=== PATIENT | female | born 1965 | race African-American/Black ===

== ENCOUNTER → 2017-05-13 | Outpatient (CLI) | payer BC, OTHER ==
[~2017-05-13] MED LIST: ACET500T33 PO; AMLO5TAB2 PO; ASPI-482 PO; BIOT1TAB2 PO; CHOL400C PO; CYCL10TA2 PO; CYCL1DRO EACHEYE; FISH OIL OMEGA1 EACH PO; GABA-585 PO; LINA145C PO; NAPR500T3 PO; NORG1TAB PO; OMEP40CA5 PO; VALS1TAB31 PO; [UNRECOGNIZED DRUG - OTHER]
--- NOTE | 2017-05-14 00:59 | PAIN ---
DATE OF SERVICE: 05/13/2017 PROGRESS NOTE FOR PAIN CLINIC DIAGNOSES: 1. Cervical radiculopathy with cervical degenerative disk disease. 2. Lumbar radiculopathy with post-lumbar laminectomy syndrome. HISTORY OF PRESENT ILLNESS: The patient is a 51-year-old female who returns for followup status post both cervical epidural steroid injections in the past and caudal epidural steroid injections. The patient had a cervical injection in 03/2016 and caudal approach lumbar injection in 07/2016. The patient did very well with about 90% improvement for greater than 6 months with each one of the injections. The patient reports that the low back has lasted even longer. She is starting to have some pain now increasing in the base of the neck radiating to bilateral upper extremities, worse on the right than the left as well as the low back radiating to the bilateral lower extremities, worse again on the right than the left. The patient reports it has been waking her up from sleep at night, has been quite bothersome, but she responded very well to the injections in the past and would like to pursue these once again. The patient reports the pain in the neck and shoulders is worse with aching, sharp, burning, cramping, stabbing, radiating and occasionally unbearable pain. Low back is burning, cramping, aching and radiating as well. The patient reports the pain is an 8 on a scale of 10 at its worst, averaging about a 6 and at least is about a 4 today. The patient reports no motor or sensory deficits, no new bowel or bladder incontinence or other complaints. PHYSICAL EXAMINATION: VITAL SIGNS: The patient's blood pressure is 119/86, pulse 66, respirations 18, temperature 98.4 degrees Fahrenheit. Height is 5 feet 7 inches, weight 182 pounds. GENERAL: The patient is awake, alert, oriented, appropriate, very pleasant demeanor. HEENT: Head shows normocephalic, atraumatic. Extraocular movements are intact, symmetrical. Oral cavity, mucous membranes are moist and pink. Dentition is intact. NECK: Shows anterior throat supple without palpable lymphadenopathy noted. Swallow reflex is symmetrical. Posterior cervical musculature shows some moderate tenderness with palpation, but is symmetrical on inspection. No specific trigger points or radiation, some moderate tenderness though diffusely throughout the middle and lower distribution of paraspinous muscles in the cervical distribution as well as the superior medial trapezius, somewhat more on the right than the left with tenderness, but without specific radiation or trigger points. The patient shows good rotational motion of the cervical spine, slightly guarded with extension, but good right and left lateral rotation for past 45 degrees closer to 90 degrees with full forward flexion as well without exacerbation of pain. CHEST: Shows normal with inspection. Breath sounds are clear to auscultation bilaterally. HEART: Shows S1 and S2 clear. No murmurs auscultated. ABDOMEN: Soft, nontender, nondistended. No palpable organomegaly. There is no rebound or guarding demonstrated. BACK: Shows spine grossly in the midline. Well-healed surgical scars noted in the lumbar distribution, but maintained cervical lordotic curvatures appreciated. The patient's paraspinous musculature is still symmetrical. On inspection with palpation shows some moderate tenderness diffusely in the upper, middle and lower distribution of the paraspinous muscles, slightly more ____ on the right than the left, but again symmetrical. No tenderness over the spinous processes, sacrum or sacroiliac regions. The patient shows good rotational motion of lumbar spine both laterally as well as extension and flexion without exacerbation of pain. EXTREMITIES: Upper extremity deep tendon reflexes at 2+ in the biceps and triceps tendons. 1+ patellar and tendo-calcaneus tendons. Motor exam is strong with commercial designer strength rated at 5/5 on the left and 4/5 on the right. Bicep and tricep flexion 4/5 on right, 5/5 left as well. Peripheral pulses are 2+ on radial distribution. No peripheral edema is noted. Lower extremities showed deep tendon reflexes at 2+ in the patellar, 1+ tendo-calcaneus tendons are symmetrical. Motor exam is strong with 5/5 dorsiflexion and extension as well as quadriceps and hamstring flexion. Peripheral pulses are 1+ posterior tibial. No peripheral edema is noted in the bilateral lower extremities. Options were discussed with the patient. The patient's old chart was reviewed as her current medication regimen updated. Current review of systems updated today as well. We will preauthorize the patient for both cervical epidural steroid injection and caudal approach lumbar epidural steroid injection as she has done very well with each of these in the past with significant radicular qualities bilaterally in the C6-C7 dermatomes in the cervical distribution as well as in the L5-S1 dermatomes in the lumbar distribution. The patient will wait for preauthorization. In the meantime, we will try Neurontin as she has done well with this in the past to some extent and Medrol Dosepak. The patient was given instruction as well as side effects to be aware of each of these medications and was encouraged to maintain her exercises. She is doing daily stretches and will continue these as well as walking daily to the best of her ability with the current pain and follow up for cervical epidural steroid injection first on her next appointment. AGUS MCARTHUR MD DR: AMANDEEP/dayo JOB#: [id number] / [id number]
== END | disposition home or self-care (01) ==
LOC: PNCL 07:38
PROVIDERS: ATTEND Anesthesiology
DX: M54.12 Radiculopathy, cervical region (principal); M54.16 Radiculopathy, lumbar region
CPT/HCPCS: 99212

== ENCOUNTER → 2017-05-23 | Outpatient (CLI) | payer BC, OTHER ==
[~2017-05-23] MED LIST changes: +IOHEXOL 180 MG/ML 10 ML VIAL. ONE; -NAPR500T3 PO; +NAPR500T4 PO; +methylPREDNISolone ACETATE 40 MG/ML VIAL. ONE; +methylPREDNISolone ACETATE 80 MG/ML VIAL. ONE
--- NOTE | 2017-05-23 08:52 | PAIN ---
DATE OF SERVICE: 05/23/2017 DIAGNOSES: 1. Cervical radiculopathy with cervical degenerative disk disease. 2. Lumbar radiculopathy with post-lumbar laminectomy syndrome. HISTORY OF PRESENT ILLNESS: The patient is a 51-year-old female who returns for followup status post pre-authorization after initial visit for cervical epidural steroid injection. The patient reports still significant pain in the neck and bilateral upper extremities, right greater than left, radiating as it was previously. The patient reports no significant change after the Medrol Dosepak, only very minimal for first few days she was taking. The patient reports the pain is still an 8 on a scale of 10 at its worst, 6 on average and 2 at least, patient reports 2 today. The patient reports sharp, dull, shooting, tingling, burning, stabbing, can be severe nonbearable at times. The patient reports no new motor or sensory deficits, still pain in the low back, bilateral lower extremities, again worse on the left side than the right at this time. The patient reports that she is sleeping well at night, feels much better with lying down or sitting, much worse with up and around, using her upper extremities, even raising her arms overhead such as getting dressed is exacerbating the pain in the neck and shoulders, especially in the right arm. PHYSICAL EXAMINATION: VITAL SIGNS: Today, the patient's blood pressure is 117/78, pulse 56, respirations are 18, temperature is 98.2 degrees Fahrenheit. Height is 5 feet 7 inches, weighs 185 pounds. GENERAL: The patient is awake, alert, oriented, appropriate, very pleasant demeanor. HEENT: Head shows normocephalic, atraumatic. Extraocular movements intact, symmetrical. Oral cavity, mucous membranes are moist and pink. Dentition is intact. NECK: Shows anterior throat supple without palpable lymphadenopathy noted. Swallow reflex is symmetrical. CHEST: Shows normal on inspection. Breath sounds are clear to auscultation bilaterally. HEART: Shows S1 and S2 clear. ABDOMEN: Soft, nontender, nondistended. No palpable organomegaly. No rebound or guarding demonstrated. BACK: Shows spine grossly in midline. Cervical paraspinous muscle shows some moderate tenderness to palpation, but only diffusely with symmetrical paraspinous musculature. The patient shows no difficulty with rotational motion, some slight guarding with extension, but not with forward flexion. Right and left lateral rotation is slightly guarded as well, but again with full range of motion. Deep tendon reflexes are 2+ in the biceps and triceps tendons. Motor exam is approximately 4 on a scale of 5 on the right with cyber systems operations specialist strength and 5/5 on the left. Peripheral pulses are 2+ radial distribution bilaterally. Chest shows normal on inspection. Breath sounds clear to auscultation bilaterally. HEART: Shows S1 and S2 clear. ABDOMEN: Soft, nontender, nondistended. No palpable organomegaly. No rebound or guarding demonstrated. Options were discussed with the patient. The patient's old chart was reviewed as her current medication regimen updated. Current review of systems updated today as well. We will proceed with a cervical epidural steroid injection today with fluoroscopic guidance. Risks were again discussed including, but not limited to bleeding, infection, possibility of epidural hematoma, subsequent neurologic compromise, dural puncture, headaches, spinal cord and/or nerve damage, side effects of steroid medication and poor results regarding pain control. The patient understands and wishes to proceed. The patient will return to clinic in approximately 2 weeks for followup. She was counseled to return appointment, activity level and side effects to be aware of. DIAGNOSES: 1. Cervical radiculopathy with cervical degenerative disk disease. 2. Cervical epidural steroid injection in translaminar approach at the C6-C7 level C-arm fluoroscopic guidance, a sterile prep and drape, using local anesthetic. MEDICATION INJECTED: 120 mg Depo-Medrol, plus 5 mL of preservative-free normal saline and 2 mL of Isovue for contrast. CONDITION ON DISCHARGE: Stable. The patient tolerated procedure well, had no complications. AGUS MCARTHUR MD DR: AMANDEEP/dayo JOB#: [id number] / [id number]
== END | disposition home or self-care (01) ==
LOC: PNCL 07:35
PROVIDERS: ATTEND Anesthesiology
DX: M50.123 Cervical disc disorder at C6-C7 level with radiculopathy (principal); M54.16 Radiculopathy, lumbar region; M96.1 Postlaminectomy syndrome, not elsewhere classified
CPT/HCPCS: 62321; J1030; J1040

== ENCOUNTER → 2017-06-06 | Outpatient (CLI) | payer BC, OTHER ==
[~2017-06-06] MED LIST changes: -IOHEXOL 180 MG/ML 10 ML VIAL. ONE; -methylPREDNISolone ACETATE 40 MG/ML VIAL. ONE; -methylPREDNISolone ACETATE 80 MG/ML VIAL. ONE
--- NOTE | 2017-06-06 12:06 | PAIN ---
DATE OF SERVICE: 06/06/2017 DATE OF SERVICE: 06/06/2017 DIAGNOSES: 1. Lumbar radiculopathy with post-lumbar laminectomy syndrome. 2. Cervical radiculopathy with cervical degenerative disk disease. HISTORY OF PRESENT ILLNESS: The patient is a 51-year-old female who returns for followup status post cervical epidural steroid injection x 1 with very good results, approximately 80% improvement, still improved in the neck and shoulders. Her chief complaint today is low back pain with bilateral lower extremity pain, slightly worse on the left than the right, currently, but present bilaterally with radiating pain from the posterior gluteus, posterior thighs, posterior calf into the legs and ankles some on the lateral thigh as well, but mostly posteriorly. The patient reports it is a 4 on a scale of 10 at its worst, 2 on a scale 10 on average and is a 2 today. The patient reports it as a sharp and dull alternating with tingling, pain, radiating pain in the lower extremities as noted. The patient reports no loss of motor function with significant fatigability to lower extremities. The patient did very well on 07/2016 with a caudal approach epidural injection with near 100% improvement at that time. The pain has been returning for about 3 months, but has been only gradually increasing. At her neck is feeling better, low back and lower extremities it is much more noticeable. The patient reports no new motor or sensory deficits, no new bowel or bladder incontinence or other complaints. Has radiation of pain in the L5-S1 dermatomal distribution again bilaterally, slightly worse on the left than the right. The patient reports it is better with being off feet, lying down, sitting down relieves the pain to a fair extent. It does not awaken her from sleep, generally no loss of motor function. PHYSICAL EXAMINATION: VITAL SIGNS: The patient's blood pressure 129/75, pulse 71, respirations 18, temperature is 98.9 degrees Fahrenheit. Height is 5 feet 7 inches, weight is 184 pounds. GENERAL: The patient is awake, alert, oriented, appropriate, very pleasant demeanor. HEENT: Head shows normocephalic, atraumatic. Extraocular movements are intact and symmetrical. Oral cavity, mucous membranes are moist and pink. Dentition is intact. NECK: Shows anterior throat supple. Swallow reflex is symmetrical. Neck shows good rotation of motion both laterally as well as extension and flexion without significant difficulty. CHEST: Shows normal with inspection. Breath sounds clear to auscultation bilaterally. HEART: Shows S1 and S2 clear. ABDOMEN: Soft, nontender, nondistended. No palpable organomegaly. There is no rebound or guarding demonstrated. BACK: Shows midline spine with normal appearing thoracic kyphosis, cervical lordotic curvature and lumbar lordotic curvature. No previous bruises, lesions, rashes are noted. There is a well-healed surgical scar over the lumbar distribution. Lumbar paraspinous musculature shows symmetrical on inspection, with palpation shows some moderate tenderness bilaterally with palpation, but only diffusely without radiation, without atrophy, hypertrophy or trigger points. No tenderness over the sacrum or sacroiliac regions. Lower extremities showed deep tendon reflexes at 1+ in the patellar and tendo calcaneus tendons are equal. Motor exam is strong with dorsiflexion and extension, rated at 5/5 as is quadriceps and hamstring flexion. Peripheral pulses are 1+ posterior tibial and dorsalis pedis pulses. No peripheral edema is noted. No clubbing, no cyanosis. The patient does have positive straight leg raise on the left and right at about 40-45 degrees bilaterally with decreased pain with knee flexion, but not completely relieved. Slightly more tender on the left side than the right. Gaenslen's and Sreekanth's maneuvers are negative bilaterally. Options were discussed with the patient. The patient's old chart was reviewed as her current medication regimen updated. Current review of systems updated today as well. We will proceed with a preauthorization for a caudal approach epidural steroid injection with significant radicular pain bilaterally, again worse left than the right with a history of very good response to these. Again, the patient has radiating pain in L5-S1 dermatomal distribution bilaterally. PLAN: The patient will continue stretching and strengthening exercises as she is doing and continue walking as tolerated and we will obtain preauthorization and plan on caudal epidural injection at that time. AGUS MCARTHUR MD DR: AMANDEEP/dayo JOB#: [id number] / [id number]
== END | disposition home or self-care (01) ==
LOC: PNCL 08:19
PROVIDERS: ATTEND Anesthesiology
DX: M54.16 Radiculopathy, lumbar region (principal); M54.12 Radiculopathy, cervical region; M50.30 Other cervical disc degeneration, unspecified cervical region
CPT/HCPCS: 99212

== ENCOUNTER → 2017-07-19 | Outpatient (CLI) | payer BC, OTHER ==
[~2017-07-19] MED LIST changes: +IOHEXOL 180 MG/ML 10 ML VIAL. ONE; +LIDOCAINE/PRILOCAINE TOPICAL CREAM 5GM TUBE. TP ONE; +methylPREDNISolone ACETATE 40 MG/ML VIAL. ONE; +methylPREDNISolone ACETATE 80 MG/ML VIAL. ONE
--- NOTE | 2017-07-19 09:14 | PAIN ---
DATE OF SERVICE: 07/19/2017 DIAGNOSES: 1. Lumbar radiculopathy with post-lumbar laminectomy syndrome. 2. Cervical radiculopathy with cervical degenerative disk disease. HISTORY OF PRESENT ILLNESS: The patient is a 52-year-old female who returns for followup status post evaluation and preauthorization for a caudal epidural steroid injection. The patient returns today wishing to proceed, complaining of pain still in the low back, bilateral lower extremities, worse on the right than the left with the pain radiating from the posterior gluteus, posterior thighs into the posterior calf, lateral medial calf on the right side and the big toe on the right side as well, some anterior thigh pain as well as posterior thigh pain on the left, but not as severe as on the right. The patient reports pain is a 7 on a scale of 10 at its worst, a 4 on average, a 1 at its least, is a 4 today. The patient reports aching, sharp, shooting, tingling, stabbing and radiating pain, becoming more constant. The patient reports no motor or sensory deficits, no new bowel or bladder incontinence. The patient reports it is much worse with standing, walking, changing positions. Sitting is better, with lying down it is much better. It does not awaken her from sleep. She sleeps about 8 hours a night on average. The patient reports no new motor or sensory deficits, no new changes. PHYSICAL EXAMINATION: VITAL SIGNS: Today, the patient's blood pressure is 132/81, pulse is 61, respirations 18, temperature is 98.8 degrees Fahrenheit, height is 5 feet 7 inches, weight is 165 pounds. GENERAL: The patient is awake, alert, oriented, appropriate, very pleasant demeanor. HEENT: Head shows normocephalic, atraumatic. Extraocular movements are intact, symmetrical. Oral cavity: Mucous membranes moist and pink. Dentition is intact. NECK: Shows anterior throat supple without palpable lymphadenopathy noted. Swallow reflex symmetrical. CHEST: Shows normal with inspection. Breath sounds clear to auscultation bilaterally. HEART: Shows S1, S2 clear. No murmurs auscultated. ABDOMEN: Soft, nontender, nondistended. No palpable organomegaly noted. No rebound or guarding demonstrated. BACK: Shows spine grossly in the midline. Some slight flattening of lumbar lordotic curvature with previously well-healed surgical scar in the lumbar distribution. Lumbar paraspinous muscle shows symmetrical on inspection, with palpation shows some moderate tenderness bilaterally, but only diffusely in the lumbar paraspinous muscles without radiation. The patient has good rotational motion both laterally as well as extension and flexion without significant difficulty. EXTREMITIES: Lower extremities show deep tendon reflexes 2+ in the patellar, 1+ tendo-calcaneus tendons are equal. Motor exam is strong with 5/5 dorsiflexion and extension, quadriceps and hamstring flexion. Peripheral pulses are 2+ posterior tibial. No peripheral edema is noted. Options were discussed with the patient. The patient's old chart was reviewed as was current medication regimen and updated. Current review of systems updated today as well. We will proceed with a caudal approach epidural steroid injection today with fluoroscopic guidance. Risks were again discussed including, but not limited to bleeding, infection, possibility of epidural hematoma, subsequent neurologic compromise, dural puncture headaches, spinal cord and/or nerve damage, side effects of steroid medication and poor results regarding pain control. The patient understands and wished to proceed. The patient will return to the clinic in approximately 2 weeks for followup, was counseled on return appointment, activity level and side effects to be aware of. DIAGNOSIS: Lumbar radiculopathy with post-lumbar laminectomy syndrome. PROCEDURE: Lumbar epidural steroid injection, caudal approach using C-arm fluoroscopic guidance under sterile prep and drape using local anesthetic. MEDICATION INJECTED: A total of 120 mg Depo-Medrol plus 10 mL of preservative-free normal saline and 2 mL Isovue contrast. CONDITION AT DISCHARGE: Stable. The patient tolerated the procedure well, had no complications. AGUS MCARTHUR MD DR: AMANDEEP/dayo JOB#: [id number] / [id number]
== END | disposition home or self-care (01) ==
LOC: PNCL 08:06
PROVIDERS: ATTEND Anesthesiology
DX: M96.1 Postlaminectomy syndrome, not elsewhere classified (principal); M54.16 Radiculopathy, lumbar region; M50.120 Mid-cervical disc disorder, unspecified level
CPT/HCPCS: 62323; J1030; J1040

== ENCOUNTER → 2017-11-25 | Outpatient (CLI) | payer BC, OTHER | END | disposition home or self-care (01) | LOC: PNCL 09:09 | DX: M50.10 Cervical disc disorder with radiculopathy, unspecified cervical region (principal) | CPT/HCPCS: 99212 ==

== ENCOUNTER → 2018-01-03 | Outpatient (CLI) | payer BC, OTHER ==
[~2018-01-03] MED LIST changes: -ACET500T33 PO; -AMLO5TAB2 PO; -ASPI-482 PO; -BIOT1TAB2 PO; -CHOL400C PO; -CYCL10TA2 PO; -CYCL1DRO EACHEYE; -FISH OIL OMEGA1 EACH PO; -GABA-585 PO; +IOHEXOL 180 MG/ML 10 ML VIAL.; -IOHEXOL 180 MG/ML 10 ML VIAL. ONE; +LIDOCAINE 1% PF 2 ML VIAL.; -LIDOCAINE/PRILOCAINE TOPICAL CREAM 5GM TUBE. TP ONE; -LINA145C PO; -NAPR500T4 PO; -NORG1TAB PO; -OMEP40CA5 PO; -VALS1TAB31 PO; -[UNRECOGNIZED DRUG - OTHER]; +methylPREDNISolone ACETATE 40 MG/ML VIAL.; -methylPREDNISolone ACETATE 40 MG/ML VIAL. ONE; +methylPREDNISolone ACETATE 80 MG/ML VIAL.; -methylPREDNISolone ACETATE 80 MG/ML VIAL. ONE
== END | disposition home or self-care (01) ==
LOC: PNCL 07:58
DX: M50.123 Cervical disc disorder at C6-C7 level with radiculopathy (principal); M96.1 Postlaminectomy syndrome, not elsewhere classified
CPT/HCPCS: 62321; J1030; J1040; Q9965

== ENCOUNTER → 2018-02-17 | Outpatient (CLI) | payer BC, OTHER | END | disposition home or self-care (01) | LOC: PNCL 08:56 | DX: M50.10 Cervical disc disorder with radiculopathy, unspecified cervical region (principal) | CPT/HCPCS: 99212 ==

== ENCOUNTER → 2018-05-11 | Outpatient (CLI) | payer BC, OTHER ==
[~2018-05-11] MED LIST changes: +ACET500T33 PO; +AMLO5TAB7 PO; +ASPI-482 PO; +BIOT1TAB2 PO; +CHOL400C PO; +CYCL10TA2 PO; +CYCL1DRO EACHEYE; +FISH OIL OMEGA1 EACH PO; +GABA-585 PO; -IOHEXOL 180 MG/ML 10 ML VIAL.; +IOHEXOL 180 MG/ML 10 ML VIAL. ONE; -LIDOCAINE 1% PF 2 ML VIAL.; +LIDOCAINE 2% PF 2ML VIAL. ONE; +LINA145C PO; +LOSA1TAB25 PO; +NAPR-514 PO; +NORG1TAB PO; +OMEP40CA5 PO; +VALS1TAB31 PO; +[UNRECOGNIZED DRUG - OTHER]; -methylPREDNISolone ACETATE 40 MG/ML VIAL.; +methylPREDNISolone ACETATE 40 MG/ML VIAL. ONE; -methylPREDNISolone ACETATE 80 MG/ML VIAL.; +methylPREDNISolone ACETATE 80 MG/ML VIAL. ONE
--- NOTE | 2018-05-11 22:26 | PAIN ---
DATE OF SERVICE: 05/11/2018 PROGRESS NOTE FOR PAIN CLINIC DIAGNOSES: 1. Lumbar radiculopathy with post-lumbar laminectomy syndrome. 2. Cervical radiculopathy with cervical degenerative disk disease. HISTORY OF PRESENT ILLNESS: The patient is a 52-year-old who returns for followup status post cervical epidural steroid injection as well as caudal epidural steroid injection, most recently cervical on 01/03/2018 and caudal injection of 07/19/2017. The patient reports she did very well. Initially, she has had some significant pain, increasing in the base of the neck and radiating to the left greater than right upper extremity, but her back has now become worse in the low back radiating to the right lower extremity, posterior gluteus, posterior thigh and calf. The patient reports that is her worst complaint today. Reports it is an 8 on a scale of 10 at its worst, 6 on average, 3 at its least and is an 8 today. The patient reports it is aching, dull, tingling, radiating and becoming more unbearable in the right lower extremity. The patient reports no new motor or sensory deficits. No new bowel or bladder incontinence but still significant pain in the low back and leg. Also, pain in the base of the neck and shoulders on the left side greater than the right into the left arm. The patient reports it does awaken her from sleep at night and she was waiting for preauthorization for a cervical injection, but we would like to have her low back taken care first as it is becoming much more uncomfortable. PHYSICAL EXAMINATION: VITAL SIGNS: The patient's blood pressure 123/73, pulse 57, respirations 16, temperature is 98.2 Fahrenheit, height is 5 feet 7 inches and weight is 189 pounds. GENERAL: The patient is awake, alert, oriented, appropriate and very pleasant demeanor. HEENT: Head shows normocephalic and atraumatic. Extraocular movements are intact and symmetrical. Oral cavity, mucous membranes are moist and pink. Dentition is intact. NECK: Shows anterior throat supple, without palpable lymphadenopathy noted. Swallow reflex is symmetrical. CHEST: Shows normal on inspection. Breath sounds are clear to auscultation bilaterally. HEART: Shows S1 and S2 clear. No murmurs auscultated. ABDOMEN: Soft, nontender and nondistended. No palpable organomegaly is noted. No rebound or guarding demonstrated. BACK: Shows spine grossly in the midline. Normal-appearing thoracic kyphosis and some minor flattening of the lumbar lordotic curvature. Lumbar paraspinous musculature shows symmetrical on inspection. Well-healed surgical scar is again noted. No tenderness with palpation, however, in the upper distribution in the paraspinous muscles but in the middle and lower is fairly significant tenderness, especially in the lower right lumbar paraspinous musculature with palpation. No trigger points. No radiation of pain. EXTREMITIES: The patient's lower extremities show deep tendon reflexes at 1+ in the patellar and tendo-calcaneus tendons. Motor exam is strong with 5/5 dorsiflexion, extension, quadriceps and hamstring flexion. Peripheral pulses are 1+ posterior tibial. No peripheral edema is noted bilaterally. Options were discussed with the patient. The patient's old chart was reviewed as well as her current medication regimen updated. Current review of systems updated today as well. We will proceed with a caudal approach epidural steroid injection today with fluoroscopic guidance. Risks were again discussed including, but not limited to bleeding, infection, possibility of epidural hematoma and subsequent neurologic compromise, dural puncture, headaches, spinal cord and/or nerve damage, side effects of steroid medication and poor results regarding pain control. The patient understands and wished to proceed. The patient will return to the clinic in approximately 2 weeks for followup, was counseled as to return appointment, activity level and side effects to be aware of. DIAGNOSIS: Lumbar radiculopathy with post-lumbar laminectomy syndrome. PROCEDURE: Caudal approach epidural steroid injections using C-arm fluoroscopic guidance under sterile prep and drape using local anesthetic. MEDICATION INJECTED: A total of 120 mg Depo-Medrol plus 10 mL of preservative-free normal saline and 2 mL of Isovue for contrast. CONDITION AT DISCHARGE: Stable. The patient tolerated the procedure well and had no complications. AGUS MCARTHUR MD DR: AMANDEEP/dayo JOB#: [id number] / [id number]
== END | disposition home or self-care (01) ==
LOC: PNCL 14:19
PROVIDERS: ATTEND Anesthesiology
DX: M54.16 Radiculopathy, lumbar region (principal); M96.1 Postlaminectomy syndrome, not elsewhere classified
CPT/HCPCS: 62323; J1030; J1040; J2001; Q9965

== ENCOUNTER → 2018-08-10 | Outpatient (CLI) | payer BC, OTHER ==
[~2018-08-10] MED LIST changes: -LIDOCAINE 2% PF 2ML VIAL. ONE; -LINA145C PO; +LINZESS145 MCG PO
--- NOTE | 2018-08-10 18:42 | PAIN ---
DATE OF SERVICE: 08/10/2018 DIAGNOSES: 1. Lumbar radiculopathy with post-lumbar laminectomy syndrome. 2. Cervical radiculopathy with cervical degenerative disk disease. HISTORY OF PRESENT ILLNESS: The patient is a 53-year-old female who returns for followup status post caudal epidural steroid injection on 05/11/2018. The patient did very well, still about 80% improvement. Her main complaint is neck and left upper extremity pain. The patient reports the pain has increased in the base of the neck, left shoulder, left arm radiating to her hand, some numbness and tingling, some in the right, but mostly on the left. The patient reports it is an aching, sharp, shooting, burning, radiating, severe, graded as 15 on a scale of 10 at its worst, 9 on average and 8 at least, has been an 8 today. The patient reports initially, she was returning to work activities, greater ability to do household activities as well, but now the pain has been returning and has been since here December since she had cervical injections. The patient reports no new motor or sensory deficits. Again, the low back is doing much better. The patient reports it wakes her from sleep if she sleeps on her left side, especially about every 6 hours. The patient reports no new motor or sensory deficits, no new bowel or bladder incontinence or other complaints. PHYSICAL EXAMINATION: VITAL SIGNS: The patient's blood pressure 121/75, pulse 67, respirations 16, temperature is 98.4 degrees Fahrenheit. Weight 192 pounds. GENERAL: The patient is awake, alert, oriented, appropriate, very pleasant demeanor. HEENT: Head shows normocephalic, atraumatic. Extraocular movements intact and symmetrical. Oral cavity: Mucous membranes moist and pink. Dentition is intact. NECK: Shows anterior throat supple without palpable lymphadenopathy noted. Swallow reflex is symmetrical. CHEST: Shows normal on inspection. Breath sounds clear to auscultation bilaterally. HEART: Shows S1, S2 clear. No murmurs auscultated. ABDOMEN: Soft, obese, nontender, nondistended. No palpable organomegaly is noted. No rebound or guarding demonstrated. BACK: Shows spine grossly in the midline. Normal appearing cervical lordotic curvature and thoracic kyphotic curvature as well as lumbar lordotic curvature with well-healed surgical scar noted in the lumbar distribution. Cervical paraspinous musculature shows symmetrical on inspection, on palpation shows some moderate tenderness but only diffusely in the inferior aspect of the cervical paraspinous muscles. The patient has good rotational motion of the cervical spine, both laterally as well as extension and flexion without significant pain reported. EXTREMITIES: Upper extremities show deep tendon reflexes 2+ in the biceps and triceps tendons. Motor exam is strong with medical center director strength rated at 5/5 and equal. Peripheral pulses are 2+ radial. No peripheral edema is noted. Options were discussed with the patient. The patient's old chart was reviewed as her current medication regimen and updated. Current review of systems is updated today as well. We will proceed with a cervical epidural steroid injection today with fluoroscopic guidance. Risks were again discussed including, but not limited to bleeding, infection, possibility of epidural hematoma, subsequent neurologic compromise, dural puncture, headaches, spinal cord and/or nerve damage, side effects of steroid medication and poor results regarding pain control. The patient understands and wished to proceed. The patient to return to clinic in approximately 2 weeks for followup, was counseled as to return appointment, activity level and side effects to be aware of. DIAGNOSES: Cervical radiculopathy with cervical degenerative disk disease. PROCEDURE: Cervical epidural steroid injection, translaminar approach C6-C7 level using C-arm fluoroscopic guidance under sterile prep and drape using local anesthetic. MEDICATION INJECTED: A total of 120 mg Depo-Medrol plus 5 mL of preservative-free normal saline and 2 mL of Isovue for contrast. CONDITION AT DISCHARGE: Stable. The patient tolerated the procedure well, had no complications. AGUS MCARTHUR MD DR: AMANDEEP/dayo JOB#: [id number] / [id number]
== END | disposition home or self-care (01) ==
LOC: PNCL 07:32
PROVIDERS: ATTEND Anesthesiology
DX: M50.123 Cervical disc disorder at C6-C7 level with radiculopathy (principal); M96.1 Postlaminectomy syndrome, not elsewhere classified
CPT/HCPCS: 62321; J1030; J1040; Q9965

== ENCOUNTER → 2018-11-27 | Outpatient (CLI) | payer BC, OTHER ==
[~2018-11-27] MED LIST changes: +AMLO5TAB10 PO; -AMLO5TAB7 PO; -IOHEXOL 180 MG/ML 10 ML VIAL. ONE; +IOHEXOL 300 MG/ML 50 ML VIAL. IT ONE; -methylPREDNISolone ACETATE 40 MG/ML VIAL. ONE; -methylPREDNISolone ACETATE 80 MG/ML VIAL. ONE
[2018-11-27 09:08] VITALS: BP 117/71
[2018-11-27 10:08] VITALS: BP 112/68
--- NOTE | 2018-11-29 08:23 | RAD ---
Cervical myelogram, 11/27/2018: History: Cervical radiculopathy Under local anesthesia, aseptic conditions and fluoroscopic guidance a lumbar puncture was performed at the L2-3 level utilizing a 25-gauge Bhavana spinal needle. Good clear CSF flow was obtained following which 10 cc of Omnipaque 300 was injected into the thecal sac. The spinal needle was removed and hemostasis obtained. The contrast material was maneuvered into the cervical region where appropriate digital imaging was performed. 2.3 minutes of fluoroscopy time was utilized. 10 fluoroscopic spot images were recorded. The patient tolerated the procedure well and was sent to CT in good condition. The following findings are delineated on the myelogram: 1. Preliminary AP and lateral lumbar images demonstrate moderate degenerative disc disease at L4-5 and to a lesser degree at L3-4 with a mild lumbar scoliosis. 2. There is disc space narrowing at C5-6 with anterior and posterior marginal spurring. There is a moderate associated anterior extradural defect with minimal associated narrowing of the thecal sac. 3. There is a minimal right lateral extradural defect at C5-6 at the level of the exiting nerve root sleeve. 4. No other significant intradural or extradural abnormality is detected. CT of the cervical spine-post myelogram, 11/27/2018: Multidetector CT imaging was performed with multiplanar reconstructions produced. The following findings are delineated: 1. No fracture or subluxation is identified. There are mild degenerative changes at scattered facet joints bilaterally. 2. At C2-3 and C3-4 there is no significant posterior disc bulge or protrusion. The central spinal canal and neural foramina are well maintained. 3. At C4-5 there is only slight posterior annular bulging. The central spinal canal and neural foramina are well maintained. 4. At C5-6 there is disc space narrowing with anterior and posterior marginal spurring. There is a small to moderate posterior disc protrusion with associated spurring centered just to the left of midline. This narrows the thecal sac down to an AP diameter of 8-9 mm just to the left of midline. There is only slight bilateral foraminal narrowing. 5. At C6-7 there is mild disc space narrowing with a small posterior disc protrusion centered just to the left of midline. The thecal sac measures 10-11 mm in AP diameter at the midline. The neural foramina are well maintained. 6. No significant spinal canal or foraminal narrowing is seen at C7-T1. IMPRESSION: 1. Moderate degenerative disc disease at C5-6 with a small to moderate posterior disc protrusion just to the left of midline with minimal associated central spinal stenosis. 2. Small posterior disc protrusion on the left at C6-7. PQRS Compliance Statement: One or more of the following individualized dose reduction techniques were utilized for this examination: 1. Automated exposure control 2. Adjustment of the mA and/or kV according to patient size 3. Use of iterative reconstruction technique DICTATED and SIGNED BY: JOSE GARCÍA MD DATE: 11/27/18 1039 MTDD
== END | disposition home or self-care (01) ==
LOC: RAD 07:31
PROVIDERS: ATTEND Neurological Surgery
DX: M50.122 Cervical disc disorder at C5-C6 level with radiculopathy (principal); M50.123 Cervical disc disorder at C6-C7 level with radiculopathy; M48.02 Spinal stenosis, cervical region
CPT/HCPCS: 72126; 72240; Q9967

== ENCOUNTER → 2019-04-02 | Outpatient (CLI) | payer BC, OTHER ==
[2018-11-27 10:08] VITALS: BP 112/68
[~2019-04-02] MED LIST changes: +DOCU-109 PO; +HYDR-2761 PO; -IOHEXOL 300 MG/ML 50 ML VIAL. IT ONE
--- NOTE | 2019-04-02 16:21 | EKG ---
[facility] [address] [place] [address] Test Date: 2019-04-02 Test Time: 16:08:25 Pat Name: JUVENCIO PAZ Department: Room: Gender: F Etl Database Developer: : 1965 Requested By: OBED QUINONES Order Number: [id number] Reading MD: Antoine Vanessa Measurements Intervals Maiden Rate: 48 P: -34 CO: 174 QRS: 31 QRSD: 94 T: 56 QT: 460 QTc: 414 Interpretive Statements SINUS BRADYCARDIA Electronically Signed On 04-03-2019 16:47:57 CDT by Antoine Vanessa
[2019-04-02 16:27] LABS: BASO # 0.1 x10^3/uL (0.0-0.2); BASO % 1 % (0-3); EOS % 1 % (0-3); HEMATOCRIT 37.3 % (36.0-47.0); HEMOGLOBIN 12.7 g/dL (12.0-15.5); LYMPH # 2.5 x10^3/uL (1.0-4.8); LYMPH % 39 % (24-48); MEAN CORPUSCULAR HEMOGLOBIN 32 pg (25-35); MEAN CORPUSCULAR HGB CONC 34 g/dL (31-37); MEAN CORPUSCULAR VOLUME 93 fL (79-100); MONO # 0.4 x10^3/uL (0.0-1.1); MONO % 7 % (0-9); NEUT # 3.4 x10^3/uL (1.8-7.7); NEUT % 53 % (31-73); PLATELET COUNT 396 x10^3/uL (140-400); RED BLOOD COUNT 4.01 x10^6/uL (3.50-5.40); RED CELL DISTRIBUTION WIDTH 13.1 % (11.5-14.5); WHITE BLOOD COUNT 6.5 x10^3/uL (4.0-11.0)
[2019-04-02 16:51] LABS: ALBUMIN 3.9 g/dL (3.4-5.0); ALBUMIN/GLOBULIN RATIO 1.1 (1.0-1.7); CALCIUM 9.7 mg/dL (8.5-10.1); CREATININE 0.9 mg/dL (0.6-1.0); GFR 78.7; POTASSIUM 3.3 mmol/L (3.5-5.1); TOTAL BILIRUBIN 0.4 mg/dL (0.2-1.0); TOTAL PROTEIN 7.5 g/dL (6.4-8.2)
== END | disposition home or self-care (01) ==
LOC: SURGPAT 13:27
PROVIDERS: ATTEND Neurological Surgery
DX: Z01.818 Encounter for other preprocedural examination (principal); M48.02 Spinal stenosis, cervical region; M54.12 Radiculopathy, cervical region; R00.1 Bradycardia, unspecified
CPT/HCPCS: 36415; 80053; 85025; 87641; 93005

== ENCOUNTER 2019-04-11 10:01 | Observation (INO) | payer BC, OTHER ==
--- NOTE | 2019-04-10 14:50 | HP ---
ADMIT DATE: 04/11/2019 PREOPERATIVE HISTORY AND PHYSICAL DATE OF SURGERY: 04/11/2019. HISTORY OF PRESENT ILLNESS: The patient is a pleasant 53-year-old who has difficulty with neck pain and left greater than right shoulder and arm pain. There is numbness and tingling, which radiates in her arms and hands, which tends to involve the dorsum of the left forearm and hand. On the right side, the pain tends to involve the right thumb with numbness in that distribution. The problem has been present for more than 5 years. She says the mornings and computer work increase her pain. She has been using diclofenac gel as well as ibuprofen and gabapentin. She has had epidural steroid injections as recently as 2018 without significant benefit. She has had physical therapy about 2 years ago. There is no significant benefit from physical therapy. PAST MEDICAL HISTORY: Hypertension, diverticulosis, fibroids, gastric polyp, internal hemorrhoids, Raynaud's, rectocele, reactive gastropathy , shingles. PAST SURGICAL HISTORY: Right carpal tunnel release 2008, bilateral breast lift 2008, bilateral tubal ligation in 2002, tonsillectomy, left knee arthroscopy 2016, lumbar microdiscectomy 2014. FAMILY HISTORY: Cancer, hypertension, spine problems. SOCIAL HISTORY: The patient is employed as a nurse practitioner. She is . Exercises daily. Former smoker. Quit more than 10 years ago. Drinks alcohol 1-2 times per month. Drinks coffee and soda daily. ALLERGIES: No known drug allergies. CURRENT MEDICATIONS: Linzess, Restasis, omeprazole, Tylenol, losartan HRT cream base, amlodipine, ibuprofen, diclofenac, hydrochlorothiazide, gabapentin, [place]. REVIEW OF SYSTEMS: A 12-point review of systems was obtained and is noncontributory except for that mentioned above. PHYSICAL EXAMINATION: NEUROSURGERY EXAMINATION: GENERAL APPEARANCE: Alert, pleasant, no acute distress. HEAD: Normocephalic and atraumatic. SKIN: Warm and dry. MUSCULOSKELETAL: Cervical paraspinal muscle bulk is normal, restricted range of motion of the cervical spine. Normal range of motion of the upper extremities bilaterally. EXTREMITIES: No clubbing, cyanosis or edema. NEUROLOGIC: Alert, oriented x 3, normal recent and remote memory. Strength 5/5 in bilateral upper and lower extremities, sensory was intact to light touch in the upper and lower extremities except for decrease in the dorsal forearm and hand on the left and right thumb. Reflexes were trace and symmetric in the upper and lower extremities bilaterally, normal gait. IMAGING: I reviewed a cervical MRI scan as well as cervical myelogram. On those studies, there is neural foraminal narrowing on the left side at C5-C6 with mild cervical stenosis as well as left-sided posterior disc bulge with flattening of the left ventral thecal sac and left foraminal narrowing at C6-C7. ASSESSMENT/PLAN: I spoke with her about her treatment options. She has exhausted conservative measures. The pain is significant and interferes with her activities during the day. She has cervical degenerative spondylosis which precludes consideration for artificial disc surgery. I recommended a 2-level cervical microdiscectomy and fusion. I suspect the majority of the pain is coming from C5-C6, but the changes at C6-C7 I feel would only worsen should she be fused at C5-C6 and, therefore, I would recommend that level in her surgery be included I spoke with her about her surgery and the risks involved. She understands. She would like to go ahead. I did discuss with her soft tissue structures of the neck and sequelae of injury to each including hoarseness and difficulty swallowing. I spoke with her about paralysis and stroke as well as a failure to improve significantly with surgery. I outlined carefully, the postoperative course. I expect that she would be off work for at least 6 weeks. She understands. We will make the arrangements. OBED QUINONES MD DR: REINALDO/dayo JOB#: [id number] / [id number] VALERIO
[2019-04-11] VITALS (9 sets, daily range): BP systolic 130–152; BP diastolic 64–85
[~2019-04-11] VITALS: Ht 170.2 cm; Wt 83.5 kg
[~2019-04-11 10:01] MED LIST changes: +BACITRACIN 50,000 UNIT in IV NORMAL SALINE 1000ML BAG 1,000 ML IRR ONE; +BUPIVACAINE-EPI 0.5%-1:200000 MPF 30 ML VIAL. INJ ONE; -DOCU-109 PO; +GELATIN SPONGE SIZE 100. ONE; -HYDR-2761 PO; +HYDROmorphone 2 MG/ML VIAL IV PRN; +IV RINGERS,LACTATED 1000ML 1,000 ML IV SCH; +MORPHINE SULFATE 2 MG/ML VIAL. IV PRN; +ONDANSETRON PF 4 MG/2 ML VIAL. IV PRN; +PROCHLORPERAZINE 10 MG/2 ML VIAL. IV PRN; +THROMBIN TOPICAL 20,000 UNIT SPRAY.SYRN KIT TP ONE; +ceFAZolin 2GM PREMIX 2 GM/50 ML BAG IV ONE; +fentaNYL PF VIAL 100 MCG/2 ML VIAL IV PRN
[2019-04-11] MEDS ORDERED: LIDOCAINE 2% PF 5 ML VIAL. ONE (11:25)
[2019-04-11] MEDS ORDERED: PROPOFOL 50 ML IV ONE ×2 (11:25→14:23)
[2019-04-11] MEDS ORDERED: DEXAMETHASONE SOD PHOS 20 MG/5 ML VIAL. ONE (11:25)
[2019-04-11] MEDS ORDERED: PHENYLEPHRINE in 0.9% NACL PF 1 MG/10 ML SYRINGE. IV ONE ×2 (11:25→13:44)
[2019-04-11] MEDS ORDERED: ROCURONIUM 50 MG/5 ML VIAL. ONE (11:25)
[2019-04-11] MEDS ORDERED: ONDANSETRON PF 4 MG/2 ML VIAL. ONE (11:25)
[2019-04-11] MEDS ORDERED: PROPOFOL 20 ML IV ONE (11:25)
[2019-04-11] MEDS ORDERED: REMIFENTANIL 2 MG VIAL. IV ONE (11:26)
[2019-04-11] MEDS ORDERED: 0.9 % SODIUM CHLORIDE 20 ML VIAL. IJ ONE ×2 (11:26)
[2019-04-11] MEDS ORDERED: MIDAZOLAM HCL/PF 2 MG/2 ML VIAL. ONE (11:26)
[2019-04-11] MEDS ORDERED: MINERAL OIL/PETROLATUM,WHITE OPHTH OINT 3.5GM TUBE. ONE (11:27)
[2019-04-11] MEDS ORDERED: GLYCOPYRROLATE 1 MG/5 ML VIAL. ONE (12:56)
[2019-04-11] MEDS ORDERED: PHENYLEPHRINE 10 MG/ML VIAL. ONE (13:44)
[2019-04-11] MEDS ORDERED: DESFLURANE > 120 MINUTES IH ONE (13:44)
[2019-04-11] MEDS ORDERED: IV NORMAL SALINE 1000ML BAG 1,000 ML IV SCH (15:23)
[2019-04-11] MEDS ORDERED: ONDANSETRON PF 4 MG/2 ML VIAL. IV PRN (15:30)
[2019-04-11] MEDS ORDERED: 0.9 % SODIUM CHLORIDE 10 ML DISP.SYRIN. IV PRN (15:30)
[2019-04-11] MEDS ORDERED: MAG HYDROX/ALUMINUM HYD/SIMETH 30 ML ORAL.SUSP PO PRN (15:30)
[2019-04-11] MEDS ORDERED: CYCLOBENZAPRINE 10 MG TABLET. PO PRN (15:30)
[2019-04-11] MEDS ORDERED: ACETAMINOPHEN 325 MG TABLET. PO PRN (15:30)
[2019-04-11] MEDS ORDERED: ZOLPIDEM 5 MG TABLET. PO PRN (15:30)
[2019-04-11] MEDS ORDERED: diphenhydrAMINE HCL 25 MG CAPSULE PO PRN (15:30)
[2019-04-11] MEDS ORDERED: fentaNYL PF VIAL 100 MCG/2 ML VIAL IV PRN (15:30)
[2019-04-11] MEDS ORDERED: HYDROcodone/APAP 5/325MG 1 TAB TABLET PO PRN (15:30)
[2019-04-11] MEDS ORDERED: CALCIUM CARBONATE 500 MG TAB.CHEW PO PRN (15:30)
[2019-04-11] MEDS ORDERED: NALOXONE 0.4 MG/ML VIAL. IV PRN ×2 (15:30)
[2019-04-11] MEDS ORDERED: MAGNESIUM HYDROXIDE 2,400 MG/30 ML ORAL.SUSP. PO PRN (15:30)
[2019-04-11] MEDS ORDERED: fentaNYL PF VIAL 100 MCG/2 ML VIAL ONE (16:07)
[2019-04-11] MEDS: fentaNYL PF VIAL 100 MCG/2 ML VIAL IV PRN ×2 (16:12→16:27)
--- NOTE | 2019-04-11 16:45 | NUR ---
Arrived to unit by bed from PACU. Awakens easily. No c/o at this time. Anterior neck dressing is d/i with soft collar. Radial pulses + bilaterally, no c/o numbness or tingling. IVF's intact and infusing. Oriented to room and controls. Side rails up x's 2 with call light in reach. Spouse and mother at bedside. Assisted pt to bathroom with steady gait and voided 500cc clear yellow urine. Return to bed. Cont. monitor.
[2019-04-11] MEDS ORDERED: POTASSIUM CL 20MEQ D5-0.45NACL 1,000 ML IV SCH (17:00)
[2019-04-11] MEDS ORDERED: NON FORMULARY ITEM (Linaclotide (Linzess) 145 MCG) PO SCH (21:00)
[2019-04-11] MEDS: cycloSPORINE 0.05% OPHTH DROPERETTE. OU SCH (21:21)
[2019-04-11] MEDS: GABAPENTIN 100 MG CAPSULE. PO SCH (21:21)
[2019-04-11] MEDS: ceFAZolin SODIUM IV Push 1 GM VIAL. IVP SCH (21:21)
[2019-04-11] MEDS: DOCUSATE SODIUM 100 MG CAPSULE. PO SCH (21:22)
[2019-04-11] MEDS: HYDROcodone/APAP 5/325MG 1 TAB TABLET PO PRN (21:40)
[2019-04-11] MEDS ORDERED: ceFAZolin SODIUM IV Push 1 GM VIAL. IVP SCH (22:00)
[2019-04-12 02:08] VITALS: BP 132/70
[2019-04-12] MEDS: HYDROcodone/APAP 5/325MG 1 TAB TABLET PO PRN ×2 (03:52→08:50)
[2019-04-12] MEDS: ceFAZolin SODIUM IV Push 1 GM VIAL. IVP SCH (05:27)
[2019-04-12 07:00] VITALS: BP 111/61
[2019-04-12] MEDS ORDERED: PANTOPRAZOLE 40 MG TABLET.DR. PO SCH (07:30)
[2019-04-12] MEDS: cycloSPORINE 0.05% OPHTH DROPERETTE. OU SCH (08:43)
[2019-04-12] MEDS: GABAPENTIN 100 MG CAPSULE. PO SCH (08:43)
[2019-04-12] MEDS: DOCUSATE SODIUM 100 MG CAPSULE. PO SCH (08:44)
[2019-04-12] MEDS ORDERED: LOSARTAN POTASSIUM 50 MG TABLET. PO SCH (09:00)
[2019-04-12] MEDS ORDERED: CHOLECALCIFEROL (VITAMIN D3) 1,000 UNIT TABLET PO SCH (09:00)
[2019-04-12] MEDS ORDERED: amLODIPine BESYLATE 5 MG TABLET PO SCH (09:00)
--- NOTE | 2019-04-12 09:00 | NUR ---
Doing well this am. Up in room with soft collar on. No c/o other than being sore neck and shoulders. Cont. monitor.
[2019-04-12] MEDS ORDERED: DOCU-109 PO (10:11)
[2019-04-12] MEDS ORDERED: HYDR-2761 PO (10:11)
--- NOTE | 2019-04-12 10:15 | DISCH ---
DISCHARGE INSTRUCTIONS Condition on Discharge Condition on Discharge: Stable Activity After Discharge Activity Instructions for Disc: Activity as tolerated, Avoid exertion Other activity instructions: no driving for a week Bathing Instructions: Shower-keep dressing dry Lifting Instructions after Dis: No heavy lifting, Do not lift >10 pounds Diet after Discharge Additional Diet Restrictions: resume home diet Wound Incision Care Wound/Incision Care: Ice to area for comfort Other wound/incision instructi: may remove dressing tomorrow then may shower, no soaking Contacting the DRRod after DC Call your doctor for: Concerns you may have Follow-Up Follow up with: follow up with Dr. Quinones's nurse in 2 weeks [phone] OBED QUINONES MD Apr 12, 2019 10:15
--- NOTE | 2019-04-12 10:26 | PDOC ---
PROGRESS NOTES Subjective Subjective POD #1 S/P ACDF upper extremity symptoms resolved mild neck pain ate breakfast without difficulty Objective Objective Vital Signs Date Time Temp Pulse Resp B/P (MAP) Pulse Ox O2 Delivery O2 Flow Rate FiO2 04/12/19 08:50 Room Air 04/12/19 08:45 60 117/63 04/12/19 07:00 98.3 18 100 98.3 04/11/19 15:49 8 Intake and Output 04/12/19 06:59 Intake Total 670 ml Output Total 1225 ml Balance -555 ml Intake Oral 670 ml Output Urine Total 1200 ml Estimated Blood Loss 25 ml # Voids 1 Physical Exam General: Alert, Oriented X3, Cooperative, Other (voice clear) MUSCULOSKELETAL: Other (WILLS) Neuro: Normal speech Skin: Other (Dressing C,D,I, flat) Plan Plan of Care ok to dc home f/u 2 weeks Comment Review of Relevant I have reviewed the following items anais (where applicable) has been applied. Medications Current Medications Bacitracin 75173 unit/Sodium Chloride 1,000 ml @ 1,000 mls/hr 1X ONCE IRR Last administered on 04/11/19at 13:49; Start 04/11/19 at 06:00; Stop 04/11/19 at 06:59; Status DC Bupivacaine HCl/ Epinephrine Bitart (Sensorcain-Epi 0.5%-1:898822 Mpf) 30 ml 1X ONCE INJ Last administered on 04/11/19at 15:35; Start 04/11/19 at 06:00; Stop 04/11/19 at 06:01; Status DC Ondansetron HCl (Zofran) 4 mg PRN Q6HRS PRN IV NAUSEA/VOMITING; Start 04/11/19 at 07:00; Stop 04/12/19 at 06:59; Status DC Fentanyl Citrate (Fentanyl 2ml Vial) 25 mcg PRN Q5MIN PRN IV MILD PAIN 1-3 Last administered on 04/11/19at 16:27; Start 04/11/19 at 07:00; Stop 04/12/19 at 06:59; Status DC Fentanyl Citrate (Fentanyl 2ml Vial) 50 mcg PRN Q5MIN PRN IV MODERATE TO SEVERE PAIN; Start 04/11/19 at 07:00; Stop 04/12/19 at 06:59; Status DC Morphine Sulfate (Morphine Sulfate) 1 mg PRN Q10MIN PRN IV SEVERE PAIN 7-10; Start 04/11/19 at 07:00; Stop 04/12/19 at 06:59; Status DC Ringer's Solution 1,000 ml @ 30 mls/hr Q24H IV Last administered on 04/11/19at 10:37; Start 04/11/19 at 07:00; Stop 04/11/19 at 18:59; Status DC Hydromorphone HCl (Dilaudid) 0.5 mg PRN Q10MIN PRN IV SEV PAIN, Second choice; Start 04/11/19 at 07:00; Stop 04/12/19 at 06:59; Status DC Prochlorperazine Edisylate (Compazine) 5 mg PACU PRN PRN IV NAUSEA, MRX1; Start 04/11/19 at 07:00; Stop 04/12/19 at 06:59; Status DC Cefazolin Sodium/ Dextrose 50 ml @ 100 mls/hr 1X PREOP PRN IV PRIOR TO PROCEDURE; Start 04/11/19 at 06:00; Stop 04/11/19 at 18:00; Status DC Gelatin (Gelfoam Size 100) 1 each STK-MED ONCE .ROUTE Last administered on 04/11/19at 13:49; Start 04/11/19 at 08:39; Stop 04/11/19 at 08:39; Status DC Thrombin 20,000 unit STK-MED ONCE TP Last administered on 04/11/19at 13:49; Start 04/11/19 at 08:39; Stop 04/11/19 at 08:39; Status DC Propofol 20 ml @ As Directed STK-MED ONCE IV ; Start 04/11/19 at 11:25; Stop 04/11/19 at 11:26; Status DC Dexamethasone Sodium Phosphate (Decadron) 20 mg STK-MED ONCE .ROUTE ; Start 04/11/19 at 11:25; Stop 04/11/19 at 11:26; Status DC Lidocaine HCl (Lidocaine Pf 2% Vial) 5 ml STK-MED ONCE .ROUTE ; Start 04/11/19 at 11:25; Stop 04/11/19 at 11:26; Status DC Ondansetron HCl (Zofran) 4 mg STK-MED ONCE .ROUTE ; Start 04/11/19 at 11:25; Stop 04/11/19 at 11:26; Status DC Phenylephrine HCl (PHENYLEPHRINE in 0.9% NACL PF) 1 mg STK-MED ONCE IV ; Start 04/11/19 at 11:25; Stop 04/11/19 at 11:26; Status DC Propofol 50 ml @ As Directed STK-MED ONCE IV ; Start 04/11/19 at 11:25; Stop 04/11/19 at 11:26; Status DC Rocuronium Hunter (Zemuron) 50 mg STK-MED ONCE .ROUTE ; Start 04/11/19 at 11:25; Stop 04/11/19 at 11:26; Status DC Midazolam HCl (Versed) 2 mg STK-MED ONCE .ROUTE ; Start 04/11/19 at 11:26; Stop 04/11/19 at 11:; Status DC Remifentanil HCl (Ultiva) 2 mg STK-MED ONCE IV ; Start 04/11/19 at 11:26; Stop 04/11/19 at 11:26; Status DC Sodium Chloride (SODIUM CHLORIDE 20ml) 20 ml STK-MED ONCE IJ ; Start 04/11/19 at 11:26; Stop 04/11/19 at 11:26; Status DC Sodium Chloride (SODIUM CHLORIDE 20ml) 20 ml STK-MED ONCE IJ ; Start 04/11/19 at 11:26; Stop 04/11/19 at 11:26; Status DC Multi-Ingred Cream/Lotion/Oil/ Oint (Artificial Tears Eye Ointment) 7 pablo STK- MED ONCE .ROUTE ; Start 04/11/19 at 11:27; Stop 04/11/19 at 11:27; Status DC Glycopyrrolate (Robinul) 1 mg STK-MED ONCE .ROUTE ; Start 04/11/19 at 12:56; Stop 04/11/19 at 12:56; Status DC Phenylephrine HCl (PHENYLEPHRINE in 0.9% NACL PF) 1 mg STK-MED ONCE IV ; Start 04/11/19 at 13:44; Stop 04/11/19 at 13:45; Status DC Phenylephrine HCl (Thien-Synephrine Inj) 10 mg STK-MED ONCE .ROUTE ; Start 04/11/19 at 13:44; Stop 04/11/19 at 13:45; Status DC Desflurane (Suprane) 90 ml STK-MED ONCE IH ; Start 04/11/19 at 13:44; Stop 04/11/19 at 13:45; Status DC Propofol 50 ml @ As Directed STK-MED ONCE IV ; Start 04/11/19 at 14:23; Stop 04/11/19 at 14:24; Status DC Amlodipine Besylate (Norvasc) 5 mg DAILY PO ; Start 04/12/19 at 09:00 Cyclobenzaprine HCl (Flexeril) 10 mg TID PRN PO MUSCLE SPASMS Last administered on 04/11/19at 19:20; Start 04/11/19 at 15:30 Cyclosporine (Restasis) 1 drop BID OU Last administered on 04/12/19at 08:45; Start 04/11/19 at 21:00 Gabapentin (Neurontin) 100 mg BID PO Last administered on 04/12/19at 08:45; Start 04/11/19 at 21:00 Vitamin D (Vitamin D3) 1,000 unit DAILY PO Last administered on 04/12/19at 08:45; Start 04/12/19 at 09:00 Non-Formulary Medication (Linaclotide (Linzess)) 145 mcg BID PO ; Start 04/11/19 at 21:00; Status UNV Losartan Potassium (Cozaar) 100 mg DAILY PO Last administered on 04/12/19at 08:45; Start 04/12/19 at 09:00 Pantoprazole Sodium (Protonix) 40 mg DAILYAC PO Last administered on 04/12/19at 07:26; Start 04/12/19 at 07:30 Fentanyl Citrate (Fentanyl 2ml Vial) 50 mcg PRN Q2HR PRN IV PAIN; Start 04/11/19 at 15:30 Acetaminophen (Tylenol) 650 mg PRN Q6HRS PRN PO MILD PAIN / TEMP; Start 04/11/19 at 15:30 Al Hydroxide/Mg Hydroxide (Mylanta Plus Xs) 30 ml PRN Q3HRS PRN PO HEARTBURN / GAS; Start 04/11/19 at 15:30 Calcium Carbonate/ Glycine (Tums) 500 mg PRN Q3HRS PRN PO INDIGESTION; Start 04/11/19 at 15:30 Diphenhydramine HCl (Benadryl) 25 mg PRN Q6HRS PRN PO ITCHING; Start 04/11/19 at 15:30 Zolpidem Tartrate (Ambien) 5 mg PRN QHS PRN PO INSOMNIA, MAY REPEAT IN 1HR; Start 04/11/19 at 15:30 Naloxone HCl (Narcan) 0.1 mg PRN Q2MIN PRN IV ADMIN; Start 04/11/19 at 15:30 Sodium Chloride (Normal Saline Flush) 3 ml QSHIFT PRN IV AFTER MEDS AND BLOOD DRAWS; Start 04/11/19 at 15:30 Potassium Chloride/Dextrose/ Sod Cl 1,000 ml @ 75 mls/hr [id number] IV ; Start 04/11/19 at 17:00; Stop 04/12/19 at 04:25; Status DC Naloxone HCl (Narcan) 0.4 mg PRN Q2MIN PRN IV SEE INSTRUCTIONS; Start 04/11/19 at 15:30 Sodium Chloride 1,000 ml @ 25 mls/hr Q24H IV ; Start 04/11/19 at 15:23 Acetaminophen/ Hydrocodone Bitart (Lortab 5/325) 1 tab PRN Q4HRS PRN PO MODERATE PAIN Last administered on 04/11/19at 17:41; Start 04/11/19 at 15:30 Acetaminophen/ Hydrocodone Bitart (Lortab 5/325) 2 tab PRN Q4HRS PRN PO SEVERE PAIN Last administered on 04/12/19at 08:50; Start 04/11/19 at 15:30 Docusate Sodium (Colace) 100 mg BID PO Last administered on 04/12/19at 08:45; Start 04/11/19 at 21:00 Magnesium Hydroxide (Milk Of Magnesia) 2,400 mg PRN Q12HR PRN PO CONSTIPATION; Start 04/11/19 at 15:30 Ondansetron HCl (Zofran) 4 mg PRN Q6HRS PRN IV NAUESA, 1ST CHOICE; Start 04/11/19 at 15:30 Cefazolin Sodium (Ancef) 1 gm Q8HRS IVP ; Start 04/11/19 at 22:00; Stop 04/12/19 at 14:01; Status UNV Fentanyl Citrate (Fentanyl 2ml Vial) 100 mcg STK-MED ONCE .ROUTE ; Start 04/11/19 at 16:07; Stop 04/11/19 at 16:45; Status DC Cefazolin Sodium (Ancef) 1 gm Q8H IVP Last administered on 04/12/19at 05:27; Start 04/11/19 at 21:00; Stop 04/12/19 at 13:01 Active Scripts Active Reported Losartan-Hctz 100-12.5 Mg Tab (Losartan/Hydrochlorothiazide) 1 Each Tablet 1 Tab PO DAILY Amlodipine Besylate 5 Mg Tablet 5 Mg PO DAILY Neurontin (Gabapentin) 100 Mg Capsule 100 Mg PO BID [progesterone-estroge] Restasis (Cyclosporine) 1 Each Droperette 1 Drop EACHEYE BID Cyclobenzaprine Hcl 10 Mg Tablet 1 Tab PO TID PRN Omeprazole 40 Mg Capsule.dr 1 Cap PO DAILY Vitamin D3 (Cholecalciferol (Vitamin D3)) 400 Unit Capsule 200 Unit PO DAILY Tylenol Extra Strength (Acetaminophen) 500 Mg Tablet 500 Mg PO PRN Linzess (Linaclotide) 145 Mcg Capsule 145 Mcg PO BID Vitals/I & O Vital Sign - Last 24 Hours 04/11/19 04/11/19 04/11/19 04/11/19 10:23 10:30 15:49 15:49 Temp 98.3 98.3 96.8 98.3 98.3 96.8 Pulse 62 62 82 Resp 18 18 18 B/P (MAP) 138/70 143/80 Pulse Ox 100 100 100 O2 Delivery Room Air Simple Mask Mask O2 Flow Rate 8 04/11/19 04/11/19 04/11/19 04/11/19 16:05 16:12 16:20 16:27 Temp 96.8 96.8 96.8 96.8 Pulse 82 80 Resp 16 16 17 16 B/P (MAP) 139/80 144/78 Pulse Ox 100 100 100 100 O2 Delivery Room Air Room Air Room Air Room Air Simple Mask Simple Mask 04/11/19 04/11/19 04/11/19 04/11/19 16:35 16:50 17:15 17:30 Temp 96.8 96.8 Pulse 68 56 68 Resp 17 B/P (MAP) 140/72 148/82 (104) 152/85 (107) Pulse Ox 100 100 100 O2 Delivery Room Air Room Air Room Air Room Air 04/11/19 04/11/19 04/11/19 04/11/19 17:41 17:45 18:00 18:30 Pulse 68 68 58 B/P (MAP) 152/80 (104) 132/78 (96) 146/76 (99) Pulse Ox 100 100 99 O2 Delivery Room Air Room Air Room Air Room Air 04/11/19 04/11/19 04/11/19 04/11/19 18:59 19:00 19:15 19:50 Temp 98.0 98.0 Pulse 58 B/P (MAP) 134/70 (91) Pulse Ox 98 O2 Delivery Room Air Room Air Room Air Room Air 04/11/19 04/11/19 04/11/19 04/11/19 20:00 21:00 21:40 23:00 Temp 98.0 98.0 Pulse 58 64 58 Resp 18 B/P (MAP) 130/71 (90) 134/64 (87) 134/70 (91) Pulse Ox 99 98 98 O2 Delivery Room Air Room Air Room Air Room Air 04/11/19 04/12/19 04/12/19 04/12/19 23:09 02:08 03:52 05:15 Temp 98.7 98.7 Pulse 54 Resp 18 18 B/P (MAP) 132/70 (90) Pulse Ox 99 99 O2 Delivery Room Air Room Air Room Air Room Air 04/12/19 04/12/19 04/12/19 04/12/19 07:00 07:36 08:45 08:50 Temp 98.3 98.3 Pulse 56 60 Resp 18 B/P (MAP) 111/61 (78) 117/63 Pulse Ox 100 O2 Delivery Room Air Room Air Room Air Intake and Output 04/11/19 04/11/19 04/12/19 14:59 22:59 06:59 Intake Total 550 ml 120 ml Output Total 725 ml 500 ml Balance -175 ml -380 ml RIAZ PYLE MANUFACTURER Apr 12, 2019 10:26
[2019-04-12 11:00] VITALS: BP 129/71
--- NOTE | 2019-04-12 11:50 | NUR ---
Discharge instructions given with prescriptions. Answered questions and concerns. Verbalized understanding. Dc'd home accompanied by spouse.
--- NOTE | 2019-04-13 18:06 | PATHOLOGY ---
[facility] Accession Number: [id number] . 01 Material submitted: . vertebral column - CERVICAL DISC . 01 Clinical history: . Cervical stenosis and radiculopathy . 02 Diagnosis: Segments of fibrocartilaginous tissue and bone, cervical disc: - Degenerative changes of fibrocartilaginous tissue. (JPM:lottery manager; 04/13/2019) MBR/04/13/2019 . 02 Comment: There is no evidence of an acute inflammatory process or malignancy. (JPM:lottery manager; 04/13/2019) . 02 Electronically signed: . Triston Em MD, Pathologist NPI- [id number] . 01 Gross description: . The specimen is received in formalin, labeled "Marce Hernandez, cervical disc". Received are multiple segments of white-zamora and pink-zamora rubbery and gritty tissue measuring 4.2 x 3.5 x 0.8 cm in aggregate dimensions. The specimen is submitted representatively in cassette A1. (CAA; 04/12/2019) QAC/QAC . 02 Pathologist provided ICD-10: M50.30 . 02 CPT . 714770, [id number] Specimen Comment: A courtesy copy of this report has been sent to Specimen Comment: [phone], . Specimen Comment: Report sent to and Performed at: 01 [facility] [address], [place] [id number] MD Kendall Escalona MD Phone: [phone] Performed at: 02 [facility] [address] [place], [place] [id number] MD Triston Em MD Phone: [phone]
--- NOTE | 2019-04-22 18:33 | OP ---
DATE OF SURGERY: 04/11/2019 PREOPERATIVE DIAGNOSES: Cervical spondylosis with disc bulging and neural foraminal narrowing with radiculopathy, C5-C6 and C6-C7. POSTOPERATIVE DIAGNOSIS: Cervical spondylosis with disc bulging and neural foraminal narrowing with radiculopathy, C5-C6 and C6-C7. OPERATION PERFORMED: Anterior cervical microdiscectomy, C5-C6, C6-C7; anterior cervical interbody fusion, C5-C6, C6-C7; anterior cervical plate, C5, C6, C7 with allograft and autograft bone. The operation was done with multimodality monitoring including motor evoked potentials, somatosensory evoked potentials, NIMS monitoring, fluoroscopy, and microscopic dissection. SURGEON: Marques Quinones M.D. MACHINE SILVER STRIPPER: JENNIFER Bhatti OPERATIVE INDICATIONS: The patient is a very pleasant 53-year-old who developed intractable neck and left greater than right shoulder and arm pain. On imaging studies, she had the above-mentioned findings. She failed to improve with significant amount of conservative measures and I recommended a 2-level anterior cervical discectomy and fusion after reviewing her cervical myelogram. She understood the surgery. I outlined the risk of surgery in detail with her including the soft tissue structures of the neck and sequelae of injury to each and then including paralysis, injury to the carotid artery with stroke, injury to the esophagus and trachea with difficulty swallowing and/or hoarseness. I spoke about the postoperative course. I outlined the technique of the surgery in detail. She understood and she wished to go ahead. DESCRIPTION OF PROCEDURE: Following general endotracheal anesthesia, the patient was positioned supine on the operating room table. The neck was gently extended on a donut. The anterior cervical region was prepped and draped in standard fashion. LINSEY hose and AV impulse boots were applied for DVT prophylaxis. The microscope was draped. Fluoroscopy was draped and brought into field. Ancef 2 gram was given less than 1 hour prior to initiation of the surgery. Using fluoroscopic guidance, an incision was made from the midline around to the right side in a skin crease. I dissected down through skin and subcutaneous tissue and I dissected through the platysma and then around the medial aspect of the sternocleidomastoid and carotid artery sheath down to the anterior cervical vertebral bodies. I reflected the trachea and esophagus contralaterally and placed self-retaining retractors, lodged in the longus colli muscle. I brought in the microscope and beginning at C6-C7. I placed pins in C6 and C7 and distracted the vertebral body slightly. I incised the anterior annulus. I performed a discectomy with pituitary rongeurs and using endplate scrapers to scrape away the cartilaginous endplate. Through the microscope using microscopic technique with a high speed air drill, I burred the posterior spurring, I trimmed the posterior disc bulging and opened the annulus and the posterior longitudinal ligament and worked widely bilaterally to assure that there was an excellent decompression bilaterally. I measured and placed interbody fusion cage, which was packed with allograft and autograft bone. The autograft bone, I obtained from saving the bone spurs. I drilled down with a high speed air drill. When this was accomplished at C6-C7, I removed the pin from C7 and closed that opening with bone wax and moved the retractor superiorly and placed a pin in C5. I performed the identical operation at C5-C6. Again, there was disc bulging and neural foraminal narrowing and I spent some time opening and widely decompressing this region. Following this, I again placed interbody fusion cage and I might note that prior to placement of the cages, I assured myself at both levels of perfect hemostasis. I then measured and placed an anterior plate, I used the [employer] system. I placed four 14 mm screws, which were placed, the superior and inferior screws first, the remaining screws followed. They were all locked carefully. I removed the retractors. I obtained imaging and I confirmed the position of the construct. I irrigated copiously. I explored carefully and assured myself of perfect hemostasis and then I closed the wound in layers with absorbable suture. The skin was closed with 4-0 subcuticular stitch. The operation went very well and the monitoring was stable throughout. I was quite pleased with the surgery. MARQUES QUINONES MD DR: REINALDO/dayo JOB#: [id number] / [id number] VALERIO
== END 2019-04-12 11:50 | disposition home or self-care (01) ==
LOC: SURG 10:01 → 4 NORTH 16:40
PROVIDERS: ADMIT Neurological Surgery; ATTEND Neurological Surgery
DX: M48.02 Spinal stenosis, cervical region (principal); M47.22 Other spondylosis with radiculopathy, cervical region; I10 Essential (primary) hypertension; I73.00 Raynaud's syndrome without gangrene; N81.6 Rectocele; R13.10 Dysphagia, unspecified; Z82.49 Family history of ischemic heart disease and other diseases of the circulatory system; Z87.891 Personal history of nicotine dependence; Z98.51 Tubal ligation status
CPT/HCPCS: 20930; 20937; 22551; 22552; 22842; 76000; 88304; 88311; 96374; 96376; 97116; 97162; 97530; A7015; C1713; G0378; G0379; J0690; J0696; J1100; J2001; J2250; J2370; J2405; J2704; J3490; J7030

== ENCOUNTER → 2019-05-10 | Outpatient (CLI) | payer BC, OTHER ==
[2019-04-12 11:00] VITALS: BP 129/71
[~2019-05-10] MED LIST changes: -BACITRACIN 50,000 UNIT in IV NORMAL SALINE 1000ML BAG 1,000 ML IRR ONE; -BUPIVACAINE-EPI 0.5%-1:200000 MPF 30 ML VIAL. INJ ONE; +DOCU-109 PO; -GELATIN SPONGE SIZE 100. ONE; +HYDR-2761 PO; -HYDROmorphone 2 MG/ML VIAL IV PRN; -IV RINGERS,LACTATED 1000ML 1,000 ML IV SCH; -MORPHINE SULFATE 2 MG/ML VIAL. IV PRN; -ONDANSETRON PF 4 MG/2 ML VIAL. IV PRN; -PROCHLORPERAZINE 10 MG/2 ML VIAL. IV PRN; -THROMBIN TOPICAL 20,000 UNIT SPRAY.SYRN KIT TP ONE; -ceFAZolin 2GM PREMIX 2 GM/50 ML BAG IV ONE; -fentaNYL PF VIAL 100 MCG/2 ML VIAL IV PRN
--- NOTE | 2019-05-10 18:22 | KCIC ---
Examination: CERVICAL SPINE 2-3V History: Status post ACDF, difficulty swallowing Comparison/Correlation: 11/27/2018 CT cervical spine with contrast Findings: Frontal, lateral, and open-mouth odontoid views of the cervical spine were obtained. Plate and screws are noted from C5 to C7. No evidence of loosening. Intervertebral disc spacer material noted at these levels. Prevertebral soft tissues are unremarkable. No fracture or bone destruction. Partially visualized lung apices are unremarkable. Impression: Postoperative findings are present and unremarkable. Electronically signed by: Vargas Mc MD (05/10/2019 6:20 PM) [facility]
== END | disposition home or self-care (01) ==
LOC: KCIC 12:44
PROVIDERS: ATTEND Neurological Surgery
DX: M50.30 Other cervical disc degeneration, unspecified cervical region (principal); R13.10 Dysphagia, unspecified
CPT/HCPCS: 72040

== ENCOUNTER → 2019-07-10 | Outpatient (CLI) | payer BC, OTHER ==
[~2019-07-10] MED LIST changes: +OMEP40CA45 PO; -OMEP40CA5 PO
--- NOTE | 2019-07-10 17:41 | KCIC ---
Study: CERVICAL SPINE 2-3V Indication: Status post recent fusion. Comparison: 05/10/2019 Findings: Redemonstrated operative changes of ACDF at C5-C7. The hardware is intact and unchanged in alignment. No change in vertebral body height or alignment. Unchanged posterior elements and atlantodental interval. Normal thickness of the prevertebral soft tissues. Unremarkable lung apices. Impression: Status post ACDF at C5-C7 without hardware complication. Electronically signed by: JAHAIRA FISCHER MD (07/10/2019 5:38 PM) [facility]
== END | disposition home or self-care (01) ==
LOC: KCIC 13:40
PROVIDERS: ATTEND Neurological Surgery
DX: Z98.890 Other specified postprocedural states (principal)
CPT/HCPCS: 72040

== ENCOUNTER → 2019-08-13 | Outpatient (CLI) | payer BC, OTHER ==
[~2019-08-13] MED LIST changes: +BARIUM SULFATE 340 GM SUSPENSION. PO ONE; +BARIUM SULFATE 60% 355 ML SUSP PO ONE; +VALS1TAB PO; -VALS1TAB31 PO
--- NOTE | 2019-08-13 16:56 | KCIC ---
Esophagram 08/13/2019 CLINICAL HISTORY: Dysphagia. Recent cervical fusion. TECHNIQUE: A barium swallow study was performed under fluoroscopic control. Six digital spot radiographs were obtained. The total fluoroscopic time is 2 minutes 58 seconds. FINDINGS: The patient is post anterior discectomy and fusion using an anterior plate, bone screws and bone graft material extending from C5 to C7. Mild extrinsic compression on the cervical esophagus is seen posteriorly from the inferior aspect of the plate. This does not obstruct the flow barium, however. The mucosal pattern of the hypopharynx, esophagus and GE junction is within normal limits. No penetration or aspiration is seen. Tertiary contractions of esophagus are seen consistent with mild to moderate esophageal dysmotility. The patient swallowed a barium tablet without difficulty. This readily passed into the stomach. No gastroesophageal reflux is seen. IMPRESSION: Mild to moderate esophageal dysmotility. Electronically signed by: Mack Lewis MD (08/13/2019 4:53 PM) [facility]
== END | disposition home or self-care (01) ==
LOC: KCIC 08:56
PROVIDERS: ATTEND Internal Medicine Gastroenterology
DX: K22.4 Dyskinesia of esophagus (principal)
CPT/HCPCS: 74220

== ENCOUNTER → 2021-05-01 | Outpatient (CLI) | payer BC, OTHER ==
[~2021-05-01] MED LIST changes: +AMLO-186 PO; -AMLO5TAB10 PO; -BARIUM SULFATE 340 GM SUSPENSION. PO ONE; -BARIUM SULFATE 60% 355 ML SUSP PO ONE; +IOHEXOL 180 MG/ML 10 ML VIAL. ONE; -OMEP40CA45 PO; +OMEP40CA7 PO; +methylPREDNISolone ACETATE 80 MG/ML VIAL. ONE
--- NOTE | 2021-05-01 08:22 | PDOC ---
Progress Note - Pain Clinic Date of Service: DOS: DATE: 05/01/21 TIME: 08:18 Diagnosis: Dx: Cervical radiculopathy with cervical degenerative disc disease and postlaminectomy syndrome Lumbar radiculopathy with lumbar degenerative disc and postlaminectomy syndrome History or Present Illness: HPI: 55-year-old female returns for follow-up last seen July 2018 patient did very well after cervical epidural steroid injections with pain decreased by about 90% patient reports over the past 6 months or so the pain is been return ing however and is now more in the right than the left upper extremity base of the neck and shoulders as well as causing some headaches at times and radiating into the upper back and shoulders patient reports traditionally her left arm has been worse but now the right arm is actually much worse with pain radiating into the hand and fingers causing numbness in the 1st finger index finger on the right side patient reports is aching and sharp tingling burning in the arms stabbing in the posterior neck radiating down the arms again worse on the right unbearable at times and tingling as well as numbness in the index fingers as noted patient reports no new motor or sensory deficits no injury patient did have new MRI scan which we discussed with her today showing C6-7 anterior spinal fusion with disc base narrowing and broad-based left lateral recess and foraminal disc bulge appears slightly increased from previous exam. Patient reports worse with reaching weightbearing repetitive motions with the upper extremities driving reaching overhead with her arms difficulty with sleeping as well over the past few months patient reports her pain a 7 on scale 10 is worse over the past week 6-7 on average to its least is a 6 Physical Exam: VS: Blood pressure is 123/81 pulse 63 respirations 16 temperature is 98.6 F weight is 193 pounds PE: PHYSICAL EXAMINATION: GENERAL: The patient is awake, alert, oriented, appropriate, very pleasant in demeanor HEENT: Shows normocephalic, atraumatic. Extraocular movements are intact and symmetrical. Oral cavity: Mucous membranes moist and pink. Dentition is in tact. NECK: Shows anterior throat supple without palpable lymphadenopathy noted. Swallow reflex symmetrical. CHEST: Shows normal on inspection. Breath sounds are clear bilaterally, no rales rhonchi wheezes auscultated. HEART: Shows S1, S2 clear. No murmurs auscultated. ABDOMEN: Soft, nontender, nondistended, obese no palpable organomegaly is noted. BACK: Shows spine grossly in the midline. Normal-appearing cervical lordotic curvature. Cervical paraspinous muscles show symmetrical with inspection, on p alpation some moderate tenderness diffusely bilaterally in the upper middle lower decrease the paraspinous muscles into the superior medial trapezius slightly more tender on the right than the left patient shows good rotation of motion of the cervical spine both laterally greater than 45 degrees closer to 90 degree as well as full extension full forward flexion without significant limitation or pain reported. There is slightly increased thoracic kyphosis, some minor flattening of the lumbar lordotic curvature, with well-healed surgical scarring noted. Lumbar paraspinous muscles show symmetrical on inspection, on palpation shows some moderate tenderness diffusely throughout the upper, middle and lower distribution of the paraspinous muscles bilaterally and also into the lower thoracic paraspinous musculature, firm and tender, but without specific trigger points, without radiation of pain. The patient has good rotational motion of the lumbar spine, both laterally as well as extension and flexion without significant difficulty. No tenderness over the spinous processes, sacrum or sacroiliac regions. EXTREMITIES: Lower extremities show deep tendon reflexes 2 in the patellar and tendo calcaneus tendons. Motor exam is 5 on a scale of 5 with right dorsiflexion, extension, quadriceps and hamstring flexion and []/5 on the left. Peripheral pulses are 1 posterior tibial. No peripheral edema is noted bilaterally. Lower extremities are warm and dry to touch, equal in color and appearance. Upper extremity show deep tendon reflexes 2+ in the bicep tricep tendons motor exam strong with 5 out of 5 health associate strength bicep and tricep flexion peripheral pulses are 2+ radial shoulder shrug is strong and intact without loss of strength on resistance as is abduction of the shoulders 90 degrees without loss bilaterally. SKIN: Shows warm and dry, good turgor. No edema. No sores, rashes or bruising throughout. Procedure: Procedure: Options discussed with patient. Patient's old chart was reviewed as her current medication regimen updated. Review of systems updated today as well. We will proceed with a cervical epidural steroid injection today with fluoroscopic guidance risks were discussed including but not limited to: Bleeding, infection, possibility of epidural hematoma and subsequent neurological compromise, dural puncture, headaches, spinal cord and/or nerve damage, side effects of steroid medication, and poor results regarding pain control. Patient understands and wished to proceed. Patient will return to clinic in approximate 2 weeks for follow-up, was counseled as return appointment, activity, and side effects to be aware of. Medication Injected: Med Injected: Procedure cervical epidural steroid injection at the C6-7 level, using local anesthetic under sterile prep and drape using C-arm fluoroscopic guidance under local anesthesia medications injected ;120 mg Depo-Medrol +5 mL normal saline and 2 mL contrast; condition at discharge is stable patient tolerated procedure well. and had no complications Condition at Discharge: Condition at Discharge: Condition at discharge is stable, patient tolerated the procedure well and had no complications. AGUS MCARTHUR MD May 01, 2021 08:22
--- NOTE | 2021-05-01 08:23 | PDOC4 ---
Procedure Note: ICD 10 Code: ICD 10 Code: M54.12 M50.30 M 96.1 Procedure Note: Patient was consented for cervical epidural steroid injection with fluoroscopic guidance. Risks were discussed including but not limited to: Bleeding, infection, possibility of epidural hematoma and subsequent neurological compromise, dural puncture, headaches, spinal cord and/or nerve damage, side effects of steroid medication, and poor results regarding pain control. Patient understands and wished to proceed. Procedure cervical epidural steroid injection at the C6-7 level, using local a nesthetic under sterile prep and drape using C-arm fluoroscopic guidance under local anesthesia medications injected ;120 mg Depo-Medrol +5 mL normal saline and 2 mL contrast; condition at discharge is stable patient tolerated procedure well. and had no complications AGUS MCARTHUR MD May 01, 2021 08:23
== END | disposition home or self-care (01) ==
LOC: PNCL 07:46
PROVIDERS: ATTEND Anesthesiology
DX: M50.10 Cervical disc disorder with radiculopathy, unspecified cervical region (principal); M51.16 Intervertebral disc disorders with radiculopathy, lumbar region; M96.1 Postlaminectomy syndrome, not elsewhere classified; I10 Essential (primary) hypertension; K21.9 Gastro-esophageal reflux disease without esophagitis; Z98.51 Tubal ligation status; Z98.890 Other specified postprocedural states; Z79.899 Other long term (current) drug therapy; Z87.891 Personal history of nicotine dependence; Z82.49 Family history of ischemic heart disease and other diseases of the circulatory system
CPT/HCPCS: 62321; J1040; Q9965

== ENCOUNTER → 2021-07-20 | Outpatient (CLI) | payer BC, OTHER ==
[~2021-07-20] MED LIST changes: +BUPIVACAINE MPF 0.25% 10 ML VIAL. ONE; +CYCL10TA19 PO; -CYCL10TA2 PO; -IOHEXOL 180 MG/ML 10 ML VIAL. ONE; +methylPREDNISolone ACETATE 40 MG/ML VIAL. ONE; -methylPREDNISolone ACETATE 80 MG/ML VIAL. ONE
--- NOTE | 2021-07-20 08:30 | PDOC ---
Progress Note - Pain Clinic Date of Service: DOS: DATE: 07/20/21 TIME: 08:26 Diagnosis: Dx: Cervical radiculopathy with cervical degenerative disease Lumbar radiculopathy with lumbar degenerative disc disease and postlaminectomy syndrome Myofascial pain History or Present Illness: HPI: 56-year-old female returns for follow-up status post cervical epidural steroid injection May 01, 2021 patient reports about 90% improvement is still doing much better her chief complaint however is spastic type pain in the base the neck and shoulder so worse on the left than the right but present into the upper mid back as well patient reports been going on for about 2 months now increasing getting worse with time patient reports it is a 10 on scale 10 is worst 7-9 on average in 4 days least is a 7 today patient reports some burning stabbing sensation base of the neck and shoulders more on the left than the righ t posteriorly with some radiation to the left lateral shoulder but not to the right patient reports some pain in the right upper extremity but fairly well controlled after her last injection for the cervical epidural patient reports it is radiating across the back tight spastic cramping and shooting. Patient reports her right arm still has a shooting pain gabapentin, however is helping it significantly. Patient reports pain is beginning to disturb her sleep about every 6-7 hours worse with repetitive motions reaching and weight lifting. Patient reports no bowel or bladder incontinence. Physical Exam: VS: Blood pressure is 138/79 pulse 70 respirations 16 temperature 98.2 F weight is 190 pounds PE: PHYSICAL EXAMINATION: GENERAL: The patient is awake, alert, oriented, appropriate, very pleasant in demeanor HEENT: Shows normocephalic, atraumatic. Extraocular movements are intact and symmetrical. Oral cavity: Mucous membranes moist and pink. Dentition is intact. NECK: Shows anterior throat supple without palpable lymphadenopathy noted. Swallow reflex symmetrical. CHEST: Shows normal on inspection. Breath sounds are clear bilaterally, no rales or rhonchi. HEART: Shows S1, S2 clear. No murmurs auscultated. ABDOMEN: Soft, nontender, nondistended. No palpable organomegaly is noted. BACK: Shows spine grossly in the midline. Normal-appearing cervical lordotic curvature. Cervical paraspinous muscles show symmetrical inspection on palpation some very firm ropelike musculature in the inferior aspect of the cervical paraspinous musculature more on the left than the right very firm ropelike consistent with trigger point areas of musculature this is true into the superior medial trapezius as well as the medial trapezius again more tender on the left than the right but very firm ropelike musculature bilaterally also in the rhomboid distribution in the thoracic paraspinous muscles again more tender on the left than the right but very firm ropelike muscular consistent with trigger point areas of muscle very tender with palpation without specific radiation. There is slightly increased thoracic kyphosis, some minor flattening of the lumbar lordotic curvature. Lumbar paraspinous muscles show symmetrical on inspection, on palpation shows some moderate tenderness diffusely throughout the upper, middle and lower distribution of the paraspinous muscles, but without specific trigger points, without radiation of pain. The patient has good rotational motion of the lumbar spine, both laterally as well as extension and flexion without significant difficulty. EXTREMITIES: Lower extremities show deep tendon reflexes 2+ in the patellar and tendo calcaneus tendons. Motor exam is 5 on a scale of 5 with right dorsiflexion, extension, quadriceps and hamstring flexion and 5/5 on the left. Peripheral pulses are 2+ posterior tibial. No peripheral edema is noted bilaterally. Lower extremities are warm and dry to touch, equal in color and appearance. Upper extremity show deep tendon reflexes 2+ in the bicep tricep tendons, motor exam is normal through strength rated 5 out of 5 as is bicep and tricep flexion. Shoulder shrug strong intact without loss of strength on resistance bilaterally. SKIN: Shows warm and dry, good turgor. No edema. No sores, rashes or bruising throughout. Procedure: Procedure: Options were discussed with patient. Patient's old chart was reviewed as her current medication regimen updated current review of systems updated today as well. We will proceed with trigger point areas identified musculature in the bilateral cervical paraspinous posterior bilateral trapezius muscular bilateral rhomboid musculature bilateral thoracic paraspinous musculature. Risk were discussed including but not limited to bleeding infection possibility of intravascular injection sequelae spread local anesthetic numbness pneumothorax side effects of steroid medication, poor results regarding pain control. Patient understands wished to proceed. Patient return to clinic in approximately 4weeks or as necessary. Medication Injected: Med Injected: Patient sitting position under sterile prep and drape trigger point identified in the bilateral cervical paraspinous muscle bilateral trapezius muscular and bilateral rhomboid musculature bilateral thoracic paraspinous muscular using 25- gauge needle was injected after negative aspiration each injection site total of 10 cc 0.25% ropivacaine as well as a total of 40 mg Depo-Medrol. Patient tolerated procedure well and had no complications. Condition at Discharge: Condition at Discharge: Condition at discharge stable, patient tolerated the procedure well and had no complications. AGUS MCARTHUR MD Jul 20, 2021 08:30
--- NOTE | 2021-07-20 08:31 | PDOC4 ---
Procedure Note: ICD 10 Code: ICD 10 Code: M60.89 Procedure Note: Patient was consented for trigger point injections. Risk were discussed including not limited to bleeding infection possibility of intravascular injection sequelae spread local anesthetic numbness pneumothorax side effects of steroid medication and poor results regarding pain control. Patient understands wished to proceed. Patient sitting position under sterile prep and drape trigger point identified in the bilateral cervical paraspinous muscle bilateral trapezius muscular and bilateral rhomboid musculature bilateral thoracic paraspinous muscular using 25- gauge needle was injected after negative aspiration each injection site total of 10 cc 0.25% ropivacaine as well as a total of 40 mg Depo-Medrol. Patient tolerated procedure well and had no complications. AGUS MCARTHUR MD Jul 20, 2021 08:31
== END | disposition home or self-care (01) ==
LOC: PNCL 07:40
PROVIDERS: ATTEND Anesthesiology
DX: M50.10 Cervical disc disorder with radiculopathy, unspecified cervical region (principal); M51.16 Intervertebral disc disorders with radiculopathy, lumbar region; M96.1 Postlaminectomy syndrome, not elsewhere classified; M79.18 Myalgia, other site; I10 Essential (primary) hypertension; K21.9 Gastro-esophageal reflux disease without esophagitis; Z98.51 Tubal ligation status; Z98.890 Other specified postprocedural states; Z79.899 Other long term (current) drug therapy; Z87.891 Personal history of nicotine dependence; Z82.49 Family history of ischemic heart disease and other diseases of the circulatory system
CPT/HCPCS: 20553; J1030; J3490

== ENCOUNTER → 2021-11-24 | Outpatient (CLI) | payer BC, OTHER ==
[~2021-11-24] MED LIST changes: +IOHEXOL 180 MG/ML 10 ML VIAL. ONE; +SEMA0.253 SQ; -methylPREDNISolone ACETATE 40 MG/ML VIAL. ONE; +methylPREDNISolone ACETATE 80 MG/ML VIAL. ONE
--- NOTE | 2021-11-24 15:34 | PDOC ---
Progress Note - Pain Clinic Date of Service: DOS: DATE: 11/24/21 TIME: 15:20 Diagnosis: Dx: Lumbar radiculopathy with lumbar degenerative disease and lumbar spinal stenosis lumbar postlaminectomy syndrome Cervical radiculopathy with cervical degenerative disease Myofascial pain History or Present Illness: HPI: 56-year-old female returns to have last seen August 20, 2020. Patient had trigger point Jex at the time and cervical epidural steroid injection in April prior to that. Patient did very well for a few months following. Patient's chief complaint today however is low back and left lower extremity pain the posterior gluteus lateral thigh anterior thigh medial thigh medial lower leg into the calf as well as the medial calf on the left side patient reports is been this way for about 2 months increasing in intensity patient had MRI scan which we discussed with her today done October 26, 2021 showing L4-5 loss of disc height with diffuse annular disc bulge and posterior disc bulge producing mass-effect on thecal sac and lateral recesses with postsurgical changes of right laminectomy defect noted facet arthropathy seen lateral disc bulge results in marked right neuroforaminal stenosis with disc bulge producing mass-effect on the right L4 nerve root. Mild to moderate left neuroforaminal stenosis present as well. Patient reports the pain is worse with walking standing changing positions better with sitting or laying down reports it is a 9 on scale 10 is worse over the past week 7-8 on average 3 at its least and is a 7 today. Patient ports aching and sharp can be burning cramping and radiating as well in the low back and left lower extremity no significant pain in the right lower extremity patient reports no bowel or bladder incontinence no loss of motor function but some fatigability of the left leg with ambulation and standing. Physical Exam: VS: Blood pressure is 134/77 pulse 63 respirations 18 temperature 90.0 F weight is 182 pounds. PE: PHYSICAL EXAMINATION: GENERAL: The patient is awake, alert, oriented, appropriate, very pleasant in demeanor HEENT: Shows normocephalic, atraumatic. Extraocular movements are intact and symmetrical. Oral cavity: Mucous membranes moist and pink. Dentition is intact. NECK: Shows anterior throat supple without palpable lymphadenopathy noted. Swallow reflex symmetrical. CHEST: Shows normal on inspection. Breath sounds are clear bilaterally, no rales rhonchi wheezes auscultated. HEART: Shows S1, S2 clear. No murmurs auscultated. ABDOMEN: Soft, nontender, nondistended. No palpable organomegaly is noted. BACK: Shows spine grossly in the midline. Normal-appearing cervical lordotic curvature. There is slightly increased thoracic kyphosis, some mild flattening of the lumbar lordotic curvature. Lumbar paraspinous muscles show symmetrical on inspection, on palpation shows some moderate tenderness diffusely throughout the upper, middle and lower distribution of the paraspinous muscles, but without specific trigger points, without radiation of pain. The patient has good rotational motion of the lumbar spine, both laterally as well as extension and flexion without significant difficulty. No tenderness over the spinous processes, sacrum or sacroiliac regions. EXTREMITIES: Lower extremities show deep tendon reflexes 2 in the patellar and tendo calcaneus tendons. Motor exam is 5 on a scale of 5 with right dorsiflexio n, extension, quadriceps and hamstring flexion and 4/5 on the left. Peripheral pulses are 1 posterior tibial. No peripheral edema is noted bilaterally. Lower extremities are warm and dry to touch, equal in color and appearance. SKIN: Shows warm and dry, good turgor. No edema. No sores, rashes or bruising throughout. Procedure: Procedure: Options were discussed the patient. Patient's old chart was use her current medication regimen updated currently is updated today as well. We will proceed with a left-sided L4-5 transforaminal epidural steroid injection today with fluoroscopic guidance. Risks were discussed including but not limited to: Bleeding, infection, possibility of epidural hematoma and subsequent neurologica l compromise, dural puncture, headaches, potential injection of the vertebral artery at that level and permanent ischemic damage, spinal cord and/or nerve damage, side effects of steroid medication, and poor results regarding pain control. Patient understands and wished to proceed. Patient will return to the clinic in approximately 4 weeks for follow-up, was counseled as to return appointment, activity level, and side effects to be aware of. Medication Injected: Med Injected: Under sterile prep and drape patient was placed in prone position using C-arm fluoroscopic guidance to identify the L4-5 distribution oblique and slightly cephalad angled C arm. The left L4-5 target was identified and using lidocaine for anesthetizing the skin 22-gauge Bhavana pencil point needle was then used to enter the skin and into the subcutaneous tissues using direct C-arm fluoroscopic guidance to guide the needle into the transforaminal aspect of the left L4-5 vertebrae this was confirmed with lateral views showing the needle tip in the superior aspect of the paravertebral region. Aspiration was noted to be negative, -1.5 cc of contrast was then injected with good spread both medially into the epidural space as well as laterally along the nerve root without uptake and without distribution and uptake on digital subtraction. At this time, a solution containing 2 cc of 0.25% bupivacaine and 80 mg of Depo-Medrol was then injected. Needle was withdrawn and sterile bandage was applied. Patient gonzales erated procedure well had no immediate complications Condition at Discharge: Condition at Discharge: Condition at discharge is stable, patient tolerated the procedure well and had no complications. AGUS MCARTHUR MD Nov 24, 2021 15:34
--- NOTE | 2021-11-24 15:35 | PDOC4 ---
Procedure Note: ICD 10 Code: ICD 10 Code: M54.16 M51.36 M4 8.06 Procedure Note: Patient was consented for left transforaminal L4-5 epidural steroid injection with fluoroscopic guidance. Risks were discussed including but not limited to: Bleeding, infection, possibility of epidural hematoma and subsequent neurologica l compromise, dural puncture, headaches, potential injection into the vertebral artery at that level and permanent ischemic damage, spinal cord and/or nerve damage, side effects of steroid medication, and poor results regarding pain control. Patient understands and wished to proceed. Under sterile prep and drape patient was placed in prone position using C-arm fluoroscopic guidance to identify the L4-5 distribution oblique and slightly cephalad angled C arm. The left L4-5 target was identified and using lidocaine for anesthetizing the skin 22-gauge Bhavana pencil point needle was then used to enter the skin and into the subcutaneous tissues using direct C-arm fluoroscopic guidance to guide the needle into the transforaminal aspect of the left L4-5 vertebrae this was confirmed with lateral views showing the needle tip in the superior aspect of the paravertebral region. Aspiration was noted to be negative, -1.5 cc of contrast was then injected with good spread both medially into the epidural space as well as laterally along the nerve root without uptake and without distribution and uptake on digital subtraction. At this time, a thang ution containing 2 cc of 0.25% bupivacaine and 80 mg of Depo-Medrol was then injected. Needle was withdrawn and sterile bandage was applied. Patient tolerated procedure well had no immediate complications AGUS MCARTHUR MD Nov 24, 2021 15:35
== END | disposition home or self-care (01) ==
LOC: PNCL 14:01
PROVIDERS: ATTEND Anesthesiology
DX: M51.16 Intervertebral disc disorders with radiculopathy, lumbar region (principal); M48.061 Spinal stenosis, lumbar region without neurogenic claudication; M96.1 Postlaminectomy syndrome, not elsewhere classified; M50.10 Cervical disc disorder with radiculopathy, unspecified cervical region; M79.18 Myalgia, other site; I10 Essential (primary) hypertension; K21.9 Gastro-esophageal reflux disease without esophagitis; Z98.51 Tubal ligation status; Z98.890 Other specified postprocedural states; Z79.899 Other long term (current) drug therapy; Z87.891 Personal history of nicotine dependence
CPT/HCPCS: 64483; J1040; J3490; Q9965